=== PATIENT | male | born 1995 | race Asian ===

== ENCOUNTER 2017-03-05 17:06 | Emergency (ER) | payer BC ==
[~2017-03-05] VITALS: Ht 175.3 cm; Wt 86.2 kg
[~2017-03-05 17:06] MED LIST: CEFD300C3 PO; CETI10TA17 PO; NAPR-243 PO; PRD10T PO
--- OUTSIDE RECORDS SUMMARY | 2017-03-05 17:11 | XMS REPORT | Continuity of Care Document ---
Author Author [facility] Organization [facility] Address Unknown Phone Unavailable Allergies Active Description Code Type Severity Reaction Onset Reported/Identified Relationship to Patient Clinical Status Yes No Known Drug Allergies [id number] Drug Allergy Unknown N/ A 01/06/2013 Medications Problems Date Dx Coded Attending Type Code Diagnosis Diagnosed By 01/06/2013 SHAKILA ALVARADO DO Ot 845.00 01/06/2013 SHAKILA ALVARADO DO Ot 959.7 01/06/2013 JOSE ALBERTO ALVARADO DOA K Ot E000.1 01/06/2013 SHAKILA ALVARADO DO Ot E009.5 01/06/2013 SHAKILA ALVARADO DO Ot E849.8 01/06/2013 JOSE ALBERTO ALVARADO DOA Sonia Ot E883.9 04/29/2014 MIKE QUAN DO Ot 719.46 07/22/2015 MIKE QUAN DO Ot 719.46 07/23/2015 SHAKILA ALVARADO DO Ot F17.210 NICOTINE DEPENDENCE, CIGARETTES, UNCOMPL 07/23/2015 JOSE ALBERTO ALVARADO DOA Sonia Ot L03.211 CELLULITIS OF FACE Procedures Results Encounters ACCT No. Visit Date/Time Discharge Status Pt. Type Provider Facility Loc./Unit Complaint [id number] 07/22/2015 23:08:00 2015 23:59:59 CLS Emergency SHAKILA ALVARADO DO [facility] ER [id number] 12/20/2013 13:37:00 2013 23:59:59 CLS Outpatient MIKE QUAN DO [facility] RAD [id number] 01/06/2013 06:42:00 2012 07:42:00 DIS Emergency SHAKILA ALVARADO DO [facility] ER
--- NOTE | 2017-03-05 17:26 | ED GU-Male ---
General Chief Complaint: -Male Stated Complaint: L TESTICLE SWELLING Source: patient Exam Limitations: no limitations (DARREN LEONARD MD) History of Present Illness Time seen by provider: 17:10 Initial Comments Here with complaint of left testicular swelling. States he woke up this morning and felt some pain to that area. Later today he noted that the pain was worse and he noted some swelling. Denies dysuria or problems with bowel movements. No recent physical or sexual activity to account for cause of pain. Timing/Duration: this morning Severity/Quality: moderate Location: scrotal Radiation: none Activities at Onset: none Sexual [place] History: less than 2 months ago Associated Symptoms: No dysuria, No nausea/vomiting, swelling (left testicle), No urinary frequency (DARREN LEONARD MD) Allergies and Home Medications Allergies Coded Allergies: No Known Drug Allergies (Unverified , 01/06/13) Home Medications Pseudoephedrine HCl 30 Mg Tablet, 30 MG PO, (Reported) Constitutional: see HPI EENTM: no symptoms reported Respiratory: no symptoms reported Cardiovascular: no symptoms reported Gastrointestinal: no symptoms reported Genitourinary: see HPI, denies dysuria, pain Musculoskeletal: no symptoms reported Skin: no symptoms reported Psychiatric/Neurological: No Symptoms Reported (DARREN LEONARD MD) Past Qepyabb-Efpzin-Sfnxks Hx Patient Social History Alcohol Use: Occasionally Uses Recreational Drug Use: No Smoking Status: Current Someday Smoker Type Used: Cigarettes 2nd Hand Smoke Exposure: Yes Recent Foreign Travel: No Contact w/Someone Who Travel: No Recent Hopitalizations: No Physical Abuse: No Sexual Abuse: No Mistreated: No Fear: No (DARREN LEONARD MD) Immunizations Up To Date Tetanus Booster (TDap): Less than 5yrs PED Vaccines UTD: Yes (DARREN LEONARD MD) Seasonal Allergies Seasonal Allergies: Yes (DARREN LEONARD MD) Surgeries History of Surgeries: Yes (LIPOMAS REMOVED FROM BOTH ARMS) (DARREN LEONARD MD) Respiratory History of Respiratory Disorde: No (DARREN LEONARD MD) Cardiovascular History of Cardiac Disorders: No (DARREN LEONARD MD) Neurological History of Neurological Disord: No (DARREN LEONARD MD) Reproductive System Hx Reproductive Disorders: No (DARREN LEONARD MD) Genitourinary History of Genitourinary Disor: No (DARREN LEONARD MD) Gastrointestinal History of Gastrointestinal Di: No (DARREN LEONARD MD) Musculoskeletal History of Musculoskeletal Dis: No (DARREN LEONARD MD) Endocrine History of Endocrine Disorders: No (DARREN LEONARD MD) HEENT History of HEENT Disorders: No (DARREN LEONARD MD) Cancer History of Cancer: No (DARREN LEONARD MD) Psychosocial History of Psychiatric Problem: No Suicide Risk Score: 0 (DARREN LEONARD MD) Integumentary History of Skin or Integumenta: No (DARREN LEONARD MD) Blood Transfusions History of Blood Disorders: No (DARREN LEONARD MD) Reviewed Nursing Assessment Reviewed/Agree w Nursing PMH: Yes (DARREN LEONARD MD) Family Medical History Significant Family History: No Pertinent Family Hx (DARREN LEONARD MD) Physical Exam Vital Signs Vital Sign - Last 12Hours 03/05/17 17:14 Temp 98.9 Pulse 107 Resp 16 B/P (MAP) 135/95 Pulse Ox 97 O2 Delivery Room Air (NANCY BOLES MD) Vital Signs Capillary Refill : (DARREN LEONARD MD) General Appearance: WD/WN, no apparent distress HEENT: PERRL/EOMI, pharynx normal Neck: full range of motion, supple Cardiovascular: regular rate, rhythm, no murmur Respiratory: lungs clear, normal breath sounds Gastrointestinal: non tender, soft Male: testicular tenderness (left sided swelling and tenderness.), other ( External genitalia normal There is some swelling and pain to the left testicle. Cremasteric reflex appears to be intact at this point bilaterally although right greater than left.) Back: normal inspection, no CVA tenderness, no vertebral tenderness Extremities: non-tender, normal inspection Neurologic/Psychiatric: alert, oriented x 3 Skin: normal color, warm/dry (DARREN LEONARD MD) Progress/Results/Core Measures Results/Orders Lab Results Laboratory Tests Test 03/05/17 17:24 Range/Units Urine Color YELLOW Urine Clarity CLEAR Urine pH 6 5-9 Urine Specific [place] 1.020 1.016-1.022 Urine Protein NEGATIVE NEGATIVE Urine Glucose (UA) NEGATIVE NEGATIVE Urine Ketones NEGATIVE NEGATIVE Urine Nitrite NEGATIVE NEGATIVE Urine Bilirubin NEGATIVE NEGATIVE Urine Urobilinogen NORMAL NORMAL MG/DL Urine Leukocyte Esterase NEGATIVE NEGATIVE Urine RBC (Auto) NEGATIVE NEGATIVE Urine RBC NONE /HPF Urine WBC RARE /HPF Urine Crystals NONE /LPF Urine Bacteria NEGATIVE /HPF Urine Casts NONE /LPF Urine Mucus MODERATE H /LPF Urine Culture Indicated NO (NANCY BOLES MD) My Orders Orders - NANCY BOLES MD Chlamydia Dna Urine Test (03/05/17 18:25) Neis Jamison Dna Urine Test (03/05/17 18:25) Rocephin 1000mg Im (03/05/17 18:30) Lidocaine 1% Injection (Xylocaine 1% Inj (03/05/17 18:30) Doxycycline Hyclate Tablet (Vibramycin T (03/05/17 18:30) (NANCY BOLES MD) Vital Signs/I&O Vital Sign - Last 12Hours 03/05/17 17:14 Temp 98.9 Pulse 107 Resp 16 B/P (MAP) 135/95 Pulse Ox 97 O2 Delivery Room Air (NANCY BOLES MD) Progress Note : Progress Note Seen and evaluated. Exam completed. UA and ultrasound ordered. Monitor patient. (DARREN LEONARD MD) Progress Note : Time: 18:37 Progress Note Care of this patient was assumed from Dr. Leonard at 18:05. Ultrasound showed evidence of epididymitis and orchitis. Rocephin IM and oral doxycycline were ordered. Patient was instructed to follow-up at the [facility] late next week. GC and chlamydia studies were ordered. (NANCY BOLES MD) Diagnostic Imaging Diagonstic Imaging: Ultrasound Plain Films/CT/US/NM/MRI: other (scrotal) Comments Scrotal ultrasound discussed with the prosthetic lab technician. There was no testicular torsion. There was evidence of orchitis and epididymitis. (NANCY BOLES MD) Departure Impression Impression: Primary Impression: Orchitis and epididymitis Disposition: 01 HOME, SELF-CARE Condition: Improved Departure-Patient Inst. Decision time for Depature: 18:30 (NANCY BOLES MD) Referrals: [facility] (PCP/Family) Primary Care Physician Patient Instructions: Epididymitis (DC) Add. Discharge Instructions: For pain may use ibuprofen up to 600 mg every 6 hours as needed. Add Tylenol ( acetaminophen) up to 1000 g every 6 hours as needed for additional pain relief. Follow-up on your cultures at the [facility] late this week or early the next week. Complete your antibiotics as prescribed. Avoid sexual activity until review of the cultures. Return to the ER or a primary care office if symptoms worsen or are not improving as expected. All discharge instructions reviewed with patient and/or family. Voiced understanding. Scripts Doxycycline Hyclate (Doxycycline Hyclate) 100 Mg Tablet. 100 MG PO BID, #20 TAB Prov: NANCY BOLES MD 03/05/17 DARREN LEONARD MD Mar 05, 2017 17:26 NANCY BOLES MD Mar 05, 2017 18:40
[2017-03-05] MEDS ORDERED: PSEU-137 PO (17:27)
[2017-03-05 17:34] LABS: BILIRUBIN,URINE NEGATIVE (NEGATIVE); KETONES,URINE NEGATIVE (NEGATIVE); LEUKOCYTE ESTERASE ,URINE NEGATIVE (NEGATIVE); NITRITE,URINE NEGATIVE (NEGATIVE); PH,URINE 6 (5-9); PROTEIN,URINE NEGATIVE (NEGATIVE); UROBILINOGEN,URINE NORMAL (NORMAL)
[2017-03-05 17:45] LABS: WBC,URINE RARE /HPF
[2017-03-05] MEDS ORDERED: DOXYCYCLINE 100 MG (VIBRAMYCIN) TABLET PO ONE (18:30)
[2017-03-05] MEDS ORDERED: cefTRIAXone 1 GM (ROCEPHIN) VIAL IM ONE (18:30)
[2017-03-05] MEDS ORDERED: LIDOCAINE 1% INJ 20 ML (XYLOCAINE) VIAL INJ ONE (18:30)
[2017-03-05] MEDS ORDERED: DOXY-227 PO (18:40)
--- NOTE | 2017-03-05 18:53 | Diagnostic Imaging Report ---
INDICATION: Left-sided testicular pain and swelling x 1 day. TECHNIQUE: Real-time grayscale sonographic imaging and color vascular evaluation of both testicles was performed. CORRELATION STUDY: None. FINDINGS: RIGHT testicle measures 3.4 x 4.5 x 2.0 cm. The right testicle is unremarkable in echogenicity. No focal testicular mass is demonstrated. There is color vascular flow. The right epididymis is unremarkable. Small right-sided hydrocele. LEFT testicle measures 3.9 x 1.8 x 3.1 cm. There is heterogeneous echotexture throughout the left testicle. This includes asymmetric areas of rounded low echogenicity. Definitive focal mass does not appear to be present. There is also increased vascularity through the left testicle. Epididymis also appears to be somewhat prominent with increased vascular flow. Small left-sided hydrocele. IMPRESSION: Imaging features favor probable left-sided orchitis and epididymitis. Given the heterogeneous echotexture through the left testicle, would recommend followup ultrasound imaging be obtained after the acute symptoms have been successfully treated, as the possibility of mass lesion, while considered less likely, would be difficult to exclude at this time. Dictated by: Dictated on workstation # [id number]
[2017-03-05 19:18] VITALS: BP 136/96
[2017-03-07 15:55] LABS: CHLAMYDIA DNA URINE Not Detected (Not Detected); NEISSERIA GONORRHEA DNA URINE Not Detected (Not Detected)
== END 2017-03-05 19:18 | disposition home or self-care (01) ==
LOC: EDUNIT# 17:06 → ER 17:07
DX: N45.3 Epididymo-orchitis (principal); F17.210 Nicotine dependence, cigarettes, uncomplicated
CPT/HCPCS: 36415; 76870; 81000; 87491; 87591; 99284

== ENCOUNTER 2018-09-04 15:16 | Emergency (ER) | payer BC ==
[~2018-09-04] VITALS: Ht 180.3 cm; Wt 86.2 kg
[~2018-09-04 15:16] MED LIST changes: +DOXY-227 PO; +PSEU-137 PO
--- OUTSIDE RECORDS SUMMARY | 2018-09-04 15:31 | XMS REPORT | Continuity of Care Document ---
Author Organization Unknown Address Unknown Allergies Active Description Code Type Severity Reaction Onset Reported/Identified Relationship to Patient Clinical Status Yes No Known Drug Allergies [id number] Drug Allergy Unknown N/A 01/06/2013 Medications There is no data. Problems Date Dx Coded Attending Type Code Diagnosis Diagnosed By 01/06/2013 SHAKILA ALVARADO DO Ot 845.00 01/06/2013 JOSE ALBERTO ALVARADO DOA K Ot 959.7 01/06/2013 JENNY BERNARDO SHAKILA K Ot E000.1 01/06/2013 JOSE ALBERTO ALVARADO DOA K Ot E009.5 01/06/2013 JOSE ALBERTO ALVARADO DOA K Ot E849.8 01/06/2013 JENNY BERNARDO SHAKILA K Ot E883.9 04/29/2014 MIKE QUAN DO Ot 719.46 07/22/2015 MIKE QUAN DO Ot 719.46 07/23/2015 JOSE ALBERTO ALVARADO DOA K Ot F17.210 NICOTINE DEPENDENCE, CIGARETTES, UNCOMPL 07/23/2015 JOSE ALBERTO ALVARADO DOA K Ot L03.211 CELLULITIS OF FACE 03/05/2017 NANCY BOLES MD Ot F17.210 NICOTINE DEPENDENCE, CIGARETTES, UNCOMPL 03/05/2017 NANCY BOLES MD Ot N45.3 EPIDIDYMO-ORCHITIS 03/05/2017 NANCY BOLES MD Ot N50.89 OTHER SPECIFIED DISORDERS OF THE MALE GE Procedures There is no data. Results Test Result Range Complete urinalysis with reflex to culture - 03/05/17 17:24 Urine color determination YELLOW NRG Urine clarity determination CLEAR NRG Urine pH measurement by test strip 6 5-9 Specific gravity of urine by test strip 1.020 1.016- 1.022 Urine protein assay by test strip, semi-quantitative NEGATIVE NEGATIVE Urine glucose detection by automated test strip NEGATIVE NEGATIVE Erythrocytes detection in urine sediment by light microscopy NEGATIVE NEGATIVE Urine ketones detection by automated test strip NEGATIVE NEGATIVE Urine nitrite detection by test strip NEGATIVE NEGATIVE Urine total bilirubin detection by test strip NEGATIVE NEGATIVE Urine urobilinogen measurement by automated test strip (mass/volume) NORMAL NORMAL Urine leukocyte esterase detection by dipstick NEGATIVE NEGATIVE Automated urine sediment erythrocyte count by microscopy (number/high power field) NONE NRG Automated urine sediment leukocyte count by microscopy (number/high power field ) RARE NRG Bacteria detection in urine sediment by light microscopy NEGATIVE NRG Crystals detection in urine sediment by light microscopy NONE NRG Casts detection in urine sediment by light microscopy NONE NRG Mucus detection in urine sediment by light microscopy MODERATE NRG Complete urinalysis with reflex to culture NO NRG Chlamydia DNA amp probe, urine - 03/05/17 17:24 Chlamydia DNA amp probe, urine Not Detected Not Detected Urine Neisseria gonorrhoeae DNA assay - 03/05/17 17:24 Gonorrhea amp DNA-urine Not Detected Not Detected Encounters ACCT No. Visit Date/Time Discharge Status Pt. Type Provider Facility Loc./Unit Complaint [id number] 03/05/2017 17:07:00 03/05/2017 19:18:00 DIS Emergency ELVI TEMPLE, NANCY Chavez [facility] L TESTICLE SWELLING [id number] 07/22/2015 23:08:00 07/22/2015 23:59:59 CLS Emergency SHAKILA ALVARADO DO [facility] ER [id number] 12/20/2013 13:37:00 12/20/2013 23:59:59 CLS Outpatient MIKE QUAN DO [facility] RAD [id number] 01/06/2013 06:42:00 01/06/2013 07:42:00 DIS Emergency SHAKILA ALVARADO DO [facility] ER
--- NOTE | 2018-09-04 15:50 | NUR ---
cleaned wound with NS
--- NOTE | 2018-09-04 15:52 | ED Upper Extremity ---
General Chief Complaint: Upper Extremity Stated Complaint: L THUMB LAC Nursing Triage Note: pt cut himself accidentally with a knife while working on a trailer. Pt had small laceration on left thumb, bleeding has stopped. Pt last got tetanus shot in 2012. pain 0/10 Nursing Sepsis Screen: No Definite Risk Source: patient Exam Limitations: no limitations History of Present Illness Date Seen by Provider: September 04, 2018 Time Seen by Provider: 15:50 Initial Comments To ER with laceration to the dorsal aspect of left thumb while working on a trailer. States that his tetanus is not up-to-date. Onset: just prior to arrival Severity: mild Pain/Injury Location: left thumb Allergies and Home Medications Allergies Coded Allergies: No Known Drug Allergies (Unverified , 01/06/13) Home Medications Doxycycline Hyclate 100 Mg Tablet.dr, 100 MG PO BID Prescribed by: NANCY CHRISTENSEN on 03/05/17 1840 Patient Home Medication List Home Medication List Reviewed: Yes Review of Systems Constitutional: see HPI EENTM: see HPI Respiratory: no symptoms reported Cardiovascular: no symptoms reported Genitourinary: no symptoms reported Skin: see HPI Psychiatric/Neurological: No Symptoms Reported Past Idxguij-Vfzlog-Kygxly Hx Patient Social History Alcohol Use: Occasionally Uses Smoking Status: Light Tobacco Smoker Type Used: Cigarettes 2nd Hand Smoke Exposure: Yes Recent Foreign Travel: No Contact w/Someone Who Travel: No Recent Infectious Disease Expo: No Recent Hopitalizations: No Immunizations Up To Date Tetanus Booster (TDap): More than 5yrs PED Vaccines UTD: Yes Seasonal Allergies Seasonal Allergies: Yes Past Medical History Surgeries: Yes (LIPOMAS REMOVED FROM BOTH ARMS) Respiratory: No Cardiac: No Neurological: No Reproductive Disorders: No Genitourinary: No Gastrointestinal: No Musculoskeletal: No Endocrine: No HEENT: No Cancer: No Psychosocial: No Integumentary: No Blood Disorders: No Family Medical History No Pertinent Family Hx Physical Exam Vital Signs Vital Signs - First Documented 09/04/18 15:37 Temp 97.8 Pulse 78 Resp 20 B/P (MAP) 145/95 (112) O2 Delivery Room Air Capillary Refill : Less Than 3 Seconds Height, Weight, BMI Height: 5'11.00" Weight: 190lbs. oz. 86.820886wo; BMI Method:Stated General Appearance: WD/WN, no apparent distress Elbow/Forearm: normal inspection, non-tender Wrist: Yes normal inspection, Yes non-tender Hand: Left, laceration (1 cm superficial laceration to the IP joint dorsally of the thumb only through the dermis not into the subcutaneous tissue. Full sensation distal to the wound, full flexion and extension abilities. Covered with wound adhesive after cleaning with chlorhexidine/saline solution.) Neurologic/Tendon: normal sensation, normal motor functions, normal tendon functions Neurologic/Psychiatric: alert, normal mood/affect, oriented x 3 Skin: normal color, warm/dry Progress/Results/Core Measures Results/Orders Vital Signs/I&O 09/04/18 15:37 Temp 97.8 Pulse 78 Resp 20 B/P (MAP) 145/95 (112) O2 Delivery Room Air Blood Pressure Mean: 112 Departure Impression Primary Impression: Thumb laceration Qualified Codes: S61.012A - Laceration without foreign body of left thumb without damage to nail, initial encounter Disposition: 01 HOME, SELF-CARE Condition: Stable Departure-Patient Inst. Decision time for Depature: 15:51 Referrals: [facility] (PCP/Family) Primary Care Physician Patient Instructions: Diphtheria and Tetanus Toxoids, and Acellular Pertussis Vaccine, Laceration Repair With Glue (DC) Add. Discharge Instructions: 1. The vaccine given today may cause you some general malaise bodyaches tomorrow as well as a sore arm. This should pass in a day or 2. Do not soak the hand in water but letting the water run over it such as in the shower is fine. The glue will follow off in its own in 3-5 days. All discharge instructions reviewed with patient and/or family. Voiced understanding. LENARD BARNES APRN September 04, 2018 15:52
[2018-09-04] MEDS ORDERED: TETANUS,DIPTH,PERTUSS P/F (BOOSTRIX) 0.5 ML VIAL IM ONE (16:00)
[2018-09-04 16:15] VITALS: BP 124/76
== END 2018-09-04 16:15 | disposition home or self-care (01) ==
LOC: EDUNIT# 15:16 → ER 15:17
DX: S61.012A Laceration without foreign body of left thumb without damage to nail, initial encounter (principal); F17.210 Nicotine dependence, cigarettes, uncomplicated; W26.8XXA Contact with other sharp object(s), not elsewhere classified, initial encounter; Y92.59 Other trade areas as the place of occurrence of the external cause; Y99.0 Civilian activity done for income or pay
CPT/HCPCS: 90471; 90715; 99284